=== PATIENT | female | born 1965 | race Caucasian/White ===

== ENCOUNTER 2019-02-10 10:05 | Emergency (ER) | payer OTHER, SELFPAY ==
[2019-02-10 10:13] VITALS: BMI 23.6
[2019-02-10 10:15] VITALS: BP 94/67; PULSE 66; RESP 20; O2SAT 100
--- NOTE | 2019-02-10 10:15 | DI.RAD.S_ITS ---
PROCEDURE: XR ELBOW LT MIN 3V INDICATIONS: deformity, pain TECHNIQUE: 3 views of the elbow were acquired. COMPARISON: None. FINDINGS: Bones: Moderately displaced fracture of the proximal ulna. Subluxation of the radiocapitellar joint. Anatomic alignment seen at the ulnotrochlear articulation. Soft tissues: Soft tissue swelling IMPRESSION: Proximal ulnar fracture, moderately displaced and radiocapitellar subluxation. Consider further imaging of the wrist for additional injuries. Dictated by: Jimmy Calvert M.D. on 02/10/2019 at 11:28 Approved by: Jimmy Calvert M.D. on 02/10/2019 at 11:30
--- NOTE | 2019-02-10 10:29 | ED_ITS ---
HPI - Extremity Injury (Upper) General Chief Complaint: Extremity Injury, Upper Stated Complaint: Left elbow pain Time Seen by Provider: 02/10/19 10:24 Source: patient and family Mode of arrival: Wheelchair History of Present Illness HPI narrative: Patient is a 53-year-old female who presents with left elbow deformity and injury. She was walking her long shoe lace is got caught in the event she tripped and fell directly onto her left elbow. No head injury no loss of consciousness no other injury. All when she moves her fingers she does have intense pain in her elbow. But she denies any numbness tingling. complaint: injury to: left and elbow Related Data Previous Rx's Medication Instructions Recorded hydrocodone-acetaminophen [[place]] 1 tab PO Q6H PRN #20 tab 02/10/19 ondansetron 4 mg PO Q8H PRN #10 tab 02/10/19 Allergies Allergy/AdvReac Type Severity Reaction Status Date / Time codeine Allergy Verified 02/10/19 10:13 Sulfa (Sulfonamide Allergy Verified 02/10/19 10:13 Antibiotics) Review of Systems Review of Systems Narrative: GENERAL: Denies chills,fever HEENT: Denies throat pain RESPIRATORY: Denies dyspnea, cough, wheezing CARDIOVASCULAR: Denies chest pain, palpitations GASTROINTESTINAL: Denies nausea, vomiting MUSCULOSKELETAL: See HPI SKIN: No rash, no laceration, no pruritus NEUROLOGIC: Denies weakness, dizziness, headache, numbness 8 point review of systems is negative except for those stated above and HPI Patient History Surgical History No pertinent past surgical history (Acute) Social History Smoking Status: Never smoker Substance Use Type: does not use Exam Initial Vital Signs Initial Vital Signs: Vital Signs Pulse Rate 66 02/10/19 10:15 Respiratory Rate 20 02/10/19 10:15 Blood Pressure 94/67 02/10/19 10:15 Pulse Oximetry 100 02/10/19 10:15 GENERAL: Well-appearing, well-nourished and in no acute distress. HEAD: Atraumatic no contusions abrasions or crepitation NECK: No vertebral tenderness or step-off CARDIOVASCULAR: peripheral pulses in tact, cap refill <2 sec RESPIRATORY: No respiratory distress, speaks in full sentences without difficulty EXTREMITIES: Normal range of motion, no clubbing or edema. Neurovascularly intact Left upper extremity: No clavicle step-off or deformity. Shoulder the to obvious is. Strong distal radial pulse. Able to move his fingers however hurts at the olecranon. NEUROLOGICAL: Cranial nerves II through XII grossly intact. Normal gait and speech. SKIN: Warm, dry, no petechiae, no rashes or lesions. Procedures Orthopedic Splinting/Casting Injury #1: Side: left Upper Extremity Injury Location: elbow Upper Extremity Immobilizer: posterior splint (straight arm extended) Post splinting neuro exam: intact Post splinting vascular exam: intact Placed by: Provider Course Orders Ordered: ED Orders 02/10/19 10:15 XR elbow LT min 3V Stat 02/10/19 13:39 XR elbow LT min 3V Stat Discontinued Medications Hydromorphone HCl (Dilaudid) 1 mg IV NOW ONE Stop: 02/10/19 10:35 Last Admin: 02/10/19 10:41 Dose: 1 mg Documented by: BTONER Hydromorphone HCl (Dilaudid) 1 mg IV NOW ONE Stop: 02/10/19 12:14 Last Admin: 02/10/19 12:16 Dose: 1 mg Documented by: SCANAPO Hydromorphone HCl (Dilaudid) 0.5 mg IV NOW ONE Stop: 02/10/19 13:14 Last Admin: 02/10/19 13:17 Dose: 0.5 mg Documented by: SCANAPO Lorazepam (Ativan) 1 mg IV NOW ONE Stop: 02/10/19 13:14 Last Admin: 02/10/19 13:17 Dose: 1 mg Documented by: SCANAPO Ondansetron HCl (Zofran) 4 mg IV NOW ONE Stop: 02/10/19 12:20 Last Admin: 02/10/19 12:38 Dose: 4 mg Documented by: PARRISO Consultations Consultation #1: Dr. Glez, orthopedics reviewed x-ray. Recommend that patient be placed in a splint with an extended arm posterior slab. She will likely need surgery. Time: 11:50 Vital Signs Vital signs: Vital Signs - 8 hr 02/10/19 10:15 02/10/19 12:14 02/10/19 13:00 Pulse Rate 66 64 61 Respiratory Rate 20 16 16 Blood Pressure [Right Arm] 94/67 96/67 105/64 Pulse Oximetry 100 100 95 02/10/19 14:03 02/10/19 16:30 Pulse Rate 83 93 H Respiratory Rate 14 Blood Pressure [Right Arm] 109/65 112/72 Pulse Oximetry 95 95 MDM - Extremity Injury (Upper) Imaging Data left elbow #1: Radiologist's impression: PROCEDURE: XR ELBOW LT MIN 3V INDICATIONS: deformity, pain TECHNIQUE: 3 views of the elbow were acquired. COMPARISON: None. FINDINGS: Bones: Moderately displaced fracture of the proximal ulna. Subluxation of the radiocapitellar joint. Anatomic alignment seen at the ulnotrochlear articulation. Soft tissues: Soft tissue swelling IMPRESSION: Proximal ulnar fracture, moderately displaced and radiocapitellar subluxation. Consider further imaging of the wrist for additional injuries. Dictated by: Jimmy Calvert M.D. on 02/10/2019 at 11:28 Approved by: Jimmy Calvert M.D. on 02/10/2019 at 11:30 left elbow #2: Radiologist's impression: PROCEDURE: XR ELBOW LT 2V INDICATIONS: splinted TECHNIQUE: 2 views of the elbow were acquired. COMPARISON: [facility], , XR ELBOW LT MIN 3V, 02/10/2019, 10:47. FINDINGS: Bones: Proximal ulnar fracture again noted with improved appearance of the previous lateral displacement however persistent overriding and dorsal displacement is seen. There is also residual subluxation of the radiocapitellar joint. Soft tissues: No elbow joint effusion. No suspicious soft tissue calcifications. IMPRESSION: Mildly improved alignment of proximal ulnar fracture however overriding and mild-moderately displaced appearance as above Persistent radiocapitellar dislocation/severe subluxation. Dictated by: Jimmy Calvert M.D. on 02/10/2019 at 14:14 Approved by: Jimmy Calvert M.D. on 02/10/2019 at 14:17 [facility] Narrative Medical decision making narrative: Discussed at length with patient and family a need for surgery. Not emergent at this time. Gave him options of having follow-up here in town versus returning home to [place]. They have chosen to go home to [place]. They have made arrangements local orthopedic she is given a disc of her x-ray. And records have been sent and requested as well. She actually took some time to wake up after Ativan and Dilaudid. She did feel nauseous at times as well. Discharge Plan Departure Patient Disposition: Home Clinical Impression: Fracture of left proximal ulna Qualifiers: Encounter type: initial encounter Fracture type: closed Fracture morphology: other fracture Qualified Code(s): S52.092A - Other fracture of upper end of left ulna, initial encounter for closed fracture Instructions: DI for Elbow Fracture Activity Restrictions/Additional Instructions: *You have been diagnosed with left proximal ulnar fracture *What to do: Keep arm and splint at all times. Try to elevate you may ice 20-30 minutes at a time through splint *Continue to take medications as directed [place] 1-2 tablets every 6 hours if needed for pain *Follow up with your primary care provider in 2-3 days Follow-up with your orthopedic in [place] as previously arranged *Return to ER if you should have numbness tingling in fingers, increased pain or any new, worsening or concerning symptoms CONTROLLED SUBSTANCE DISCHARGE (Narcotoic/benzodiazepine/Flexeril/Phenergan) 1. You have been prescribed narcotic medications, it does have acetaminophen/Tylenol/paracetamol in it so do not take extra Tylenol or Tylenol containing products 2. Please understand that we cannot provide further refills of narcotics, benzodiazepines or controlled substances through the ED and her pain management will need to be through your provider. 3. While on these medications you cannot drive or operate heavy machinery. 4. You cannot sign legal documents or perform any duties such as this. 5. As long as you're taking opiate pain medications he should also be taking a stool softener such as Colace, Dulcolax, MiraLAX or prune juice, to help avoid constipation. Prescriptions: New hydrocodone-acetaminophen [[place]] 5-325 mg tablet 1 tab PO Q6H PRN (Reason: pain) Qty: 20 RF: 0 ondansetron 4 mg tablet,disintegrating 4 mg PO Q8H PRN (Reason: nausea and vomiting) Qty: 10 RF: 0 Referrals: Lilly Glez MD [Physician] -
[2019-02-10] MEDS: HYDROMORPHONE 1 MG INJ IV ×2 (10:41→12:16)
[2019-02-10 12:14] VITALS: BP 96/67; PULSE 64; RESP 16; O2SAT 100
[2019-02-10] MEDS: ONDANSETRON 4 MG/2 ML INJ IV (12:38)
[2019-02-10 13:00] VITALS: BP 105/64; PULSE 61; RESP 16; O2SAT 95
[2019-02-10] MEDS: HYDROMORPHONE 0.5 MG INJ IV (13:17)
[2019-02-10] MEDS: LORazepam 2 MG/ML INJ 1 MG IV (13:17)
--- NOTE | 2019-02-10 13:39 | DI.RAD.S_ITS ---
PROCEDURE: XR ELBOW LT 2V INDICATIONS: splinted TECHNIQUE: 2 views of the elbow were acquired. COMPARISON: [facility], CR, XR ELBOW LT MIN 3V, 02/10/2019, 10:47. FINDINGS: Bones: Proximal ulnar fracture again noted with improved appearance of the previous lateral displacement however persistent overriding and dorsal displacement is seen. There is also residual subluxation of the radiocapitellar joint. Soft tissues: No elbow joint effusion. No suspicious soft tissue calcifications. IMPRESSION: Mildly improved alignment of proximal ulnar fracture however overriding and mild-moderately displaced appearance as above Persistent radiocapitellar dislocation/severe subluxation. Dictated by: Jimmy Calvert M.D. on 02/10/2019 at 14:14 Approved by: Jimmy Calvert M.D. on 02/10/2019 at 14:17
[2019-02-10 14:03] VITALS: BP 109/65; PULSE 83; O2SAT 95
--- NOTE | 2019-02-10 15:14 | PC.NURSE ---
pt wanted to try to stand, pt felt nauseated, zofran 4mg ivp provided.
[2019-02-10 16:30] VITALS: BP 112/72; PULSE 93; RESP 14; O2SAT 95
--- NOTE | 2019-02-10 18:59 | PC.NURSE ---
pt's ED physician report faxed to [facility] [phone], at pt's request.
== END 2019-02-10 16:45 | disposition home or self-care (01) ==
PROVIDERS: Emergency Provider Emergency Medicine
DX: S52.092A Other fracture of upper end of left ulna, initial encounter for closed fracture (principal); R11.0 Nausea; W01.0XXA Fall on same level from slipping, tripping and stumbling without subsequent striking against object, initial encounter
CPT/HCPCS: 29105; 73080; 96374; 96375; 96376; 99283; 99284; J1170; J2060; J2405

== ENCOUNTER 2019-02-11 09:23 | Emergency (ER) | payer OTHER, SELFPAY ==
[2019-02-11 09:38] VITALS: BP 141/86; PULSE 69; RESP 16; TEMP 36.7; O2SAT 98
--- NOTE | 2019-02-11 09:39 | ED_ITS ---
HPI - Recheck/Abnormal Lab/Rx General Chief Complaint: Recheck/Abnormal Lab/Rx Stated Complaint: left arm broken yest. needs different pain meds. Time Seen by Provider: 02/11/19 09:39 Source: patient Mode of arrival: Ambulatory Limitations: no limitations History of Present Illness HPI narrative: Patient is a 53 year old female who presents with right arm pain. She was seen evaluated by myself yesterday she has a proximal ulnar fracture splinted with arm extended. She was given hydrocodone 20 tablets yesterday and Zofran. However she states that the hydrocodone isn't working. She has a hard time finding a comfortable position. She elevates as best as she can. She has scheduled and spoken with an orthopedic surgeon in [place] she scheduled to see him on Thursday. They are planning on leaving [facility] however her pain is not quite controlled with hydrocodone and would like something different. Related Data Previous Rx's Medication Instructions Recorded hydrocodone-acetaminophen [[place]] 1 tab PO Q6H PRN #20 tab 02/10/19 ondansetron 4 mg PO Q8H PRN #10 tab 02/10/19 oxycodone-acetaminophen [Percocet] 1 tab PO Q6H PRN #20 tab 02/11/19 Allergies Allergy/AdvReac Type Severity Reaction Status Date / Time codeine Allergy Verified 02/10/19 10:13 Sulfa (Sulfonamide Allergy Verified 02/10/19 10:13 Antibiotics) Review of Systems Review of Systems Narrative: GENERAL: Denies chills,fever HEENT: Denies throat pain RESPIRATORY: Denies dyspnea, cough, wheezing CARDIOVASCULAR: Denies chest pain, palpitations GASTROINTESTINAL: Denies nausea, vomiting MUSCULOSKELETAL: See HPI SKIN: No rash, no laceration, no pruritus NEUROLOGIC: Denies weakness, dizziness, headache, numbness 8 point review of systems is negative except for those stated above and HPI Patient History Medical History Patient denies medical problems (Acute) Surgical History No pertinent past surgical history (Acute) Social History Smoking Status: Never smoker Substance Use Type: does not use Exam Initial Vital Signs Initial Vital Signs: Vital Signs Temperature 98.0 F 02/11/19 09:38 Pulse Rate 69 02/11/19 09:38 Respiratory Rate 16 02/11/19 09:38 Blood Pressure 141/86 H 02/11/19 09:38 Pulse Oximetry 98 02/11/19 09:38 GENERAL: Well-appearing, well-nourished and in no acute distress. CARDIOVASCULAR: peripheral pulses in tact, cap refill <2 sec RESPIRATORY: No respiratory distress, speaks in full sentences without difficulty EXTREMITIES: Normal range of motion, no clubbing or edema. Neurovascularly intact Left arm in spite ent cap refill less than 2 seconds able to move fingers without any significant pain or difficulty. NEUROLOGICAL: Cranial nerves II through XII grossly intact. Normal gait and speech. SKIN: Warm, dry, no petechiae, no rashes or lesions. Course Orders Ordered: Discontinued Medications Ketorolac Tromethamine (Toradol) 30 mg IM NOW ONE Stop: 02/11/19 09:41 Last Admin: 02/11/19 09:49 Dose: 30 mg Documented by: NI Oxycodone/Acetaminophen (Percocet 5/325) 1 tab PO NOW ONE Stop: 02/11/19 09:59 Last Admin: 02/11/19 10:22 Dose: 1 tab Documented by: LILI Vital Signs Vital signs: Vital Signs - 8 hr 02/11/19 09:38 Temperature 98.0 F Pulse Rate 69 Respiratory Rate 16 Blood Pressure 141/86 H Pulse Oximetry 98 MDM - Recheck/Abnormal Lab/Rx MDM Narrative Medical decision making narrative: Patient is needing more pain control. She is given a shot of Toradol in the ED will change her over to Percocet. I have explained that there is not much else we will be able to do for her in the emergency department. She is actually much more awake appropriate today. No sign of compartment syndrome at this time. No need for repeat imaging. Discharge Plan Departure Patient Disposition: Home Clinical Impression: Fracture of left proximal ulna Qualifiers: Encounter type: subsequent encounter Fracture type: closed Fracture morphology: other fracture Fracture healing: with routine healing Qualified Code(s): S52.092D - Other fracture of upper end of left ulna, subsequent encounter for closed fracture with routine healing Discharge Date/Time: 02/11/19 10:35 Instructions: Elbow Fracture Activity Restrictions/Additional Instructions: *You have been diagnosed with proximal ulnar fracture *What to do: *Continue to take medications as directed Percocet 1 tablet every 4 hours or 2 tablets every 6 hours Ibuprofen 800 mg every 8 hours if needed with food *Follow up with your primary care provider in 2-3 days *Return to ER if you should have increasing pain with moving fingers, inability to move fingers, pain out of control, or any new, worsening or concerning symptoms CONTROLLED SUBSTANCE DISCHARGE (Narcotoic/benzodiazepine/Flexeril/Phenergan) 1. You have been prescribed narcotic medications, it does have acetaminophen/Tylenol/paracetamol in it so do not take extra Tylenol or Tylenol containing products 2. Please understand that we cannot provide further refills of narcotics, benzodiazepines or controlled substances through the ED and her pain management will need to be through your provider. 3. While on these medications you cannot drive or operate heavy machinery. 4. You cannot sign legal documents or perform any duties such as this. 5. As long as you're taking opiate pain medications he should also be taking a stool softener such as Colace, Dulcolax, MiraLAX or prune juice, to help avoid constipation. Prescriptions: New oxycodone-acetaminophen [Perc[place]] 5-325 mg tablet 1 tab PO Q6H PRN (Reason: pain) Qty: 20 RF: 0 No Action hydrocodone-acetaminophen [[place]] 5-325 mg tablet 1 tab PO Q6H PRN (Reason: pain) Qty: 20 RF: 0 ondansetron 4 mg tablet,disintegrating 4 mg PO Q8H PRN (Reason: nausea and vomiting) Qty: 10 RF: 0 Referrals: Lilly Glez MD [Physician] -
[2019-02-11] MEDS: KETOROLAC 60 MG/2 ML VIAL 30 MG IM (09:49)
[2019-02-11] MEDS: OXYCODONE/ACETAMINOPHEN 5/325 TABLET 1 TAB PO (10:22)
== END 2019-02-11 10:35 | disposition home or self-care (01) ==
PROVIDERS: Emergency Provider Emergency Medicine
DX: S52.092D Other fracture of upper end of left ulna, subsequent encounter for closed fracture with routine healing (principal)
CPT/HCPCS: 96372; 99282; 99283; J1885